=== PATIENT | female | born 1980 | race Caucasian/White ===

== ENCOUNTER 2016-06-20 16:39 | Emergency (ER) | payer BC ==
[2016-06-20] MEDS ORDERED: KETOROLAC 60 MG/2 ML VIAL IM STA (17:02)
--- NOTE | 2016-06-20 17:04 | ED ---
General Adult HPI - General Chief complaint: Abdominal Pain Stated complaint: muscle pain Time Seen by Provider: 06/20/16 16:50 Source: patient, RN notes reviewed Mode of arrival: ambulatory Limitations: no limitations - History of Present Illness Initial comments: This is a 35-year-old female who presents to the emergency department complaining of right lower quadrant abdominal pain. Patient states yesterday for the first time she tried and abdominal she and that makes her do a lot of twisting and then she woke up in the middle the night with pain in her right lower quadrant. Patient states the pain only comes when she moves or twists. Patient states the car ride here did not cause any pain. Patient states that she jumped straight up-and-down that does not cause her any pain. Patient denies any nausea or vomiting. Patient denies any diarrhea. Patient states lying still in bed she doesn't even feel it. Patient denies any recent fever or chills. Patient denies any other symptoms at this time. - Related Data Home Medications Medication Instructions Recorded Confirmed Ibuprofen [Advil] 200 mg PO Q8HR PRN 06/20/16 06/20/16 Previous Rx's Medication Instructions Recorded Levofloxacin [Levaquin] 750 mg PO DAILY #10 tab 06/20/16 metroNIDAZOLE [Flagyl] 500 mg PO QID #10 tab 06/20/16 Allergies Allergy/AdvReac Type Severity Reaction Status Date / Time sulfamethoxazole Allergy Rash/Hives Verified 06/20/16 17:12 [From Bactrim] trimethoprim [From Bactrim] Allergy Rash/Hives Verified 06/20/16 17:12 Review of Systems ROS Statement: Those systems with pertinent positive or pertinent negative responses have been documented in the HPI. ROS Other: All systems not noted in ROS Statement are negative. Past Medical History Past Medical History: No Reported History History of Any Multi-Drug Resistant Organisms: None Reported Past Surgical History: Section Past Psychological History: No Psychological Hx Reported Smoking Status: Current every day smoker Past Alcohol Use History: None Reported Past Drug Use History: None Reported General Exam - General Exam Comments Initial Comments: GENERAL: Patient is well-developed and well-nourished. Patient is nontoxic and well- hydrated and is in mild distress. ENT: Neck is soft and supple. No significant lymphadenopathy is noted. Oropharynx is clear. Moist mucous membranes. Neck has full range of motion without eliciting any pain. EYES: The sclera were anicteric and conjunctiva were pink and moist. Extraocular movements were intact and pupils were equal round and reactive to light. Eyelids were unremarkable. PULMONARY: Unlabored respirations. Good breath sounds bilaterally. No audible rales rhonchi or wheezing was noted. CARDIOVASCULAR: There is a regular rate and rhythm without any murmurs gallops or rubs. ABDOMEN: There is tenderness in the right lower quadrant there is no rebound. No palpable organomegaly was noted. There is no palpable pulsatile mass. Patient was able to lie still without any pain at all patient was able to stand up and jostled her body up-and-down is not causing any pain whatsoever she couldn't elicit pain with twisting or bending or sitting up in bed. SKIN: Skin is clear with no lesions or rashes and otherwise unremarkable. NEUROLOGIC: Patient is alert and oriented x3. Cranial nerves II through XII are grossly intact. Motor and sensory are also intact. Normal speech, volume and content. Symmetrical smile. MUSCULOSKELETAL: Normal extremities with adequate strength and full range of motion. No lower extremity swelling or edema. No calf tenderness. LYMPHATICS: No significant lymphadenopathy is noted PSYCHIATRIC: Normal psychiatric evaluation. Limitations: no limitations Course Vital Signs 06/20/16 06/20/16 06/20/16 16:49 17:37 18:55 Temperature 98 F 98.8 F 98.5 F Pulse Rate 108 H 108 H 100 Respiratory 20 18 18 Rate Blood Pressure 134/72 132/80 129/78 O2 Sat by Pulse 99 100 98 Oximetry 06/20/16 20:06 Temperature 98.7 F Pulse Rate 87 Respiratory 16 Rate Blood Pressure 109/55 O2 Sat by Pulse 97 Oximetry Medical Decision Making - Lab Data Result diagrams: 06/20/16 16:10 06/20/16 16:10 Lab Results 06/20/16 06/20/16 06/20/16 Range/Units 16:10 16:10 17:15 WBC 17.1 H (3.8-10.6) k/uL RBC 4.81 (3.80-5.40) m/uL Hgb 13.6 (11.4-16.0) gm/dL Hct 39.6 (34.0-46.0) % MCV 82.2 (80.0-100.0) fL MCH 28.2 (25.0-35.0) pg MCHC 34.3 (31.0-37.0) g/dL RDW 13.5 (11.5-15.5) % Plt Count 264 (150-450) k/uL Neutrophils % 76 % Lymphocytes % 16 % Monocytes % 4 % Eosinophils % 2 % Basophils % 1 % Neutrophils # 12.9 H (1.3-7.7) k/uL Lymphocytes # 2.8 (1.0-4.8) k/uL Monocytes # 0.7 (0-1.0) k/uL Eosinophils # 0.3 (0-0.7) k/uL Basophils # 0.1 (0-0.2) k/uL Sodium 140 (137-145) mmol/L Potassium 3.9 (3.5-5.1) mmol/L Chloride 101 (98-107) mmol/L Carbon Dioxide 28 (22-30) mmol/L Anion Gap 11 mmol/L BUN 7 (7-17) mg/dL Creatinine 0.70 (0.52-1.04) mg/dL Est GFR (MDRD) Af Amer >60 (>60 ml/min/1.73 sqM) Est GFR (MDRD) Non-Af >60 (>60 ml/min/1.73 sqM) Glucose 107 H (74-99) mg/dL Calcium 9.5 (8.4-10.2) mg/dL Total Bilirubin 0.5 (0.2-1.3) mg/dL AST 20 (14-36) U/L ALT 28 (9-52) U/L Alkaline Phosphatase 72 (38-126) U/L Total Protein 7.3 (6.3-8.2) g/dL Albumin 4.4 (3.5-5.0) g/dL Urine HCG, Qual Not Detected (Not Detectd) Disposition Clinical Impression: Diverticulitis Disposition: HOME SELF-CARE Condition: Good Prescriptions: Levofloxacin [Levaquin] 750 mg PO DAILY #10 tab metroNIDAZOLE [Flagyl] 500 mg PO QID #10 tab Referrals: Franco Sanchez DO [Primary Care Provider] - 1-2 days Time of Disposition: 20:29
[2016-06-20 17:24] LABS: Basophils # (A) 0.1 k/uL (0-0.2); Basophils % (A) 1 %; CH 27.6; CHCM 33.8; Eosinophils # (A) 0.3 k/uL (0-0.7); Eosinophils % (A) 2 %; HCT 39.6 % (34.0-46.0); HDW 2.53; HGB 13.6 gm/dL (11.4-16.0); Luc # (Auto) 0.32; Luc % (Auto) 2; Lymphocytes # (A) 2.8 k/uL (1.0-4.8); Lymphocytes % (A) 16 %; MCH 28.2 pg (25.0-35.0); MCHC 34.3 g/dL (31.0-37.0); MCV 82.2 fL (80.0-100.0); Mean Platelet Volume 7.4; Monocytes # (A) 0.7 k/uL (0-1.0); Monocytes % (A) 4 %; Neutrophils # (A) 12.9 k/uL (1.3-7.7); Neutrophils % (A) 76 %; RBC 4.81 m/uL (3.80-5.40); RDW 13.5 % (11.5-15.5); WBC 17.1 k/uL (3.8-10.6); WBC (Perox) 16.74
[2016-06-20 17:37] LABS: ALT 28 U/L (9-52); AST 20 U/L (14-36); Alkaline Phosphatase 72 U/L (38-126); Anion Gap 11 mmol/L; Blood Urea Nitrogen 7 mg/dL (7-17); Calcium 9.5 mg/dL (8.4-10.2); Carbon Dioxide 28 mmol/L (22-30); Chloride 101 mmol/L (98-107); Glucose 107 mg/dL (74-99); Non-African American GFR(MDRD) >60 (>60 ml/min/1.73 sqM); Potassium 3.9 mmol/L (3.5-5.1); Sodium 140 mmol/L (137-145); Total Bilirubin 0.5 mg/dL (0.2-1.3); Total Protein 7.3 g/dL (6.3-8.2)
--- NOTE | 2016-06-20 18:57 | US ---
EXAMINATION TYPE: US abdomen APPY DATE OF EXAM: 06/20/2016 6:51 PM COMPARISON: NONE CLINICAL HISTORY: RLQ Pain. Elevated WBC APPENDIX AP Diameter (normal < 6mm): Not visualized on this exam Measured outer wall to outer wall. Is the appendix seen in its entirety from the proximal cecum to distal end: No, the appendix is not visualized on this exam due to a large amount of peristalsing bowel in the RLQ Is there inflammatory changes or free fluid present: No TECHNOLOGIST IMPRESSION: Non-visualization of the appendix due to large amount of peristalsing bowel IMPRESSION: Appendix was not visualized. No solid or cystic mass identified. No free fluid.
[2016-06-20] MEDS ORDERED: RX INFO: IV CONTRAST WAS GIVEN 1 EACH MISC MISCELLANE PRN (19:05)
[2016-06-20 20:08] VITALS: RESP 16
--- NOTE | 2016-06-20 20:12 | CT ---
EXAMINATION TYPE: CT abdomen pelvis w con DATE OF EXAM: 06/20/2016 7:53 PM COMPARISON: NONE HISTORY: Right Lower Quadrant pain CT DLP: 617.2 mGycm Automated exposure control for dose reduction was used. TECHNIQUE: Helical acquisition of images was performed from the lung bases through the pelvis. CONTRAST: Performed without Oral Contrast and with IV Contrast, patient injected with 100 mL of Omnipaque 300. FINDINGS: Lung bases are clear. There is no pleural effusion. Heart size is normal. The liver spleen pancreas gallbladder appear normal. Bile ducts are not dilated. There is no adrenal mass. Kidneys have normal size and contour. There is no hydronephrosis. There is no retroperitoneal a denopathy. There is no ascites. There are moderate inflammatory changes posterior to the cecum and mid descending colon. There is fat stranding. There is a tiny amount of fluid in the right paracolic gutter. There is some free fluid in the cul-de-sac. Bladder distends smoothly. There is no pelvic mass. Appen serina appears normal. I see no bony destructive process. There appears to be a 1.5 cm diverticulum on t he posterior aspect of the mid ascending colon. IMPRESSION: THERE ARE INFLAMMATORY CHANGES ON THE POSTERIOR ASPECT OF THE ASCENDING COLON WITH FREE FLUID IN THE PARACOLIC GUTTER WELL IN THE PELVIS. THE FINDINGS ARE SUGGESTIVE OF DIVERTICULITIS WITH PERIDI VERTICULAR PHLEGMON.
[2016-06-20] MEDS ORDERED: metroNIDAZOLE 500 MG TAB PO STA (20:29)
[2016-06-20] MEDS ORDERED: LEVOFLOXACIN 750 MG TAB PO STA (20:29)
[2016-06-20 20:43] VITALS: BP 135/75; PULSE 89; TEMP 98.6
== END 2016-06-20 20:55 | disposition home or self-care (01) ==
LOC: EC 16:39
DX: K57.92 Diverticulitis of intestine, part unspecified, without perforation or abscess without bleeding (principal); F17.200 Nicotine dependence, unspecified, uncomplicated; Z88.1 Allergy status to other antibiotic agents; Z88.2 Allergy status to sulfonamides
CPT/HCPCS: 36415; 80053; 85025; 81025; 76705; 74177; 99284; 96372; J1885; Q9967

== ENCOUNTER 2016-06-25 18:34 | Emergency (ER) | payer BC ==
[2016-06-25 18:38] VITALS: RESP 18
[2016-06-25] MEDS ORDERED: HYDROmorphone 1 MG/ML 1 ML SYRINGE IVP STA (18:49)
[2016-06-25] MEDS ORDERED: SODIUM CHLORIDE 0.9% 1,000 ML IV STA (18:49)
[2016-06-25] MEDS ORDERED: ONDANSETRON 4 MG/2 ML VIAL IVP STA (18:49)
--- NOTE | 2016-06-25 18:50 | ED ---
Abdominal Pain HPI - General Chief Complaint: Abdominal Pain Stated Complaint: RT side pain Time Seen by Provider: 06/25/16 18:40 Source: patient Mode of arrival: ambulatory - History of Present Illness Initial Comments: Patient is a 35-year-old female with a recent visit with a chief complaint of right lower quadrant abdominal pain. Patient reports that she was seen in the emergency department on 06/20/16 and was diagnosed with diverticulitis. Patient reports that she was placed on Levaquin and Flagyl and has been taking the medications as prescribed. Patient reports that she's also been taking Motrin Tylenol for pain however she stop taking it today she wanted to make sure that she was starting to feel better. Patient reports that when she does not take her pain medication today she noticed that the right lower quadrant pain started to recur. Patient is concerned that the infection is still there. She states that she does have 3 days left of her antibiotics. Patient states that she's been no nausea or vomiting sent normal bowel movements. She denies any blood in her bowel movements. She states that she has had multiple rounds of antibiotics is concerned that she may have a yeast infection. She denies any other vaginal discharge. Patient reports that she rates her pain a 7 out of 10. She states that it is a cramping like sensation but will occasionally have sharp shooting pains. She reports that she attempted to follow-up with her primary care provider. She states that she was unable to get an appointment until 70s after an emergency room visit. - Related Data Previous Rx's Medication Instructions Recorded Levofloxacin [Levaquin] 750 mg PO DAILY #10 tab 06/20/16 Acetaminophen-Codeine 300-30mg 1 tab PO Q4H PRN #12 tablet 06/25/16 [Tylenol #3] Allergies Allergy/AdvReac Type Severity Reaction Status Date / Time sulfamethoxazole Allergy Rash/Hives Verified 06/25/16 18:56 [From Bactrim] trimethoprim [From Bactrim] Allergy Rash/Hives Verified 06/25/16 18:56 Review of Systems ROS Statement: Those systems with pertinent positive or pertinent negative responses have been documented in the HPI. ROS Other: All systems not noted in ROS Statement are negative. Past Medical History Past Medical History: No Reported History History of Any Multi-Drug Resistant Organisms: None Reported Past Surgical History: Section Past Psychological History: No Psychological Hx Reported Smoking Status: Current every day smoker Past Alcohol Use History: None Reported Past Drug Use History: None Reported General Exam - General Exam Comments Initial Comments: Patient is a pleasant 35-year-old female. She does not appear to be in any acute distress. General appearance: alert, in no apparent distress Head exam: Present: atraumatic, normocephalic, normal inspection Eye exam: Present: normal appearance, PERRL, EOMI. Absent: scleral icterus, conjunctival injection, periorbital swelling ENT exam: Present: normal exam, mucous membranes moist Neck exam: Present: normal inspection. Absent: tenderness, meningismus, lymphadenopathy Respiratory exam: Present: normal lung sounds bilaterally. Absent: respiratory distress, wheezes, rales, rhonchi, stridor Cardiovascular Exam: Present: regular rate, normal rhythm, normal heart sounds. Absent: systolic murmur, diastolic murmur, rubs, gallop, clicks GI/Abdominal exam: Present: soft, tenderness (Patient reports mild tenderness in the right lower quadrant. Deep palpation was performed and there is no evidence of guarding or wincing of the patient.), normal bowel sounds. Absent: distended, guarding, rebound, rigid Extremities exam: Present: normal inspection, full ROM, normal capillary refill. Absent: tenderness, pedal edema, joint swelling, calf tenderness Back exam: Present: normal inspection Neurological exam: Present: alert, oriented X3, CN II-XII intact Psychiatric exam: Present: normal affect, normal mood Skin exam: Present: warm, dry, intact, normal color. Absent: rash Course Vital Signs 06/25/16 06/25/16 18:35 20:46 Temperature 98.3 F 98.4 F Pulse Rate 98 85 Respiratory 18 18 Rate Blood Pressure 137/87 135/69 O2 Sat by Pulse 98 97 Oximetry Medical Decision Making - Medical Decision Making Patient is a 35-year-old female with a recent visit with a chief complaint of right lower quadrant abdominal pain. Patient reports that she was seen in the emergency department on 06/20/16 and was diagnosed with diverticulitis. Patient reports that she was placed on Levaquin and Flagyl and has been taking the medications as prescribed. Patient reports that she's also been taking Motrin Tylenol for pain however she stop taking it today she wanted to make sure that she was starting to feel better. Patient reports that when she does not take her pain medication today she noticed that the right lower quadrant pain started to recur. Patient is concerned that the infection is still there. She states that she does have 3 days left of her antibiotics. Patient states that she's been no nausea or vomiting sent normal bowel movements. Lab work is reviewed, WBC is 11.6, dramatic improvement from 17.1 on inital visit. Xray shows no free air. I discussed that doing a CT is not indicated at this time, given lack of guarding or tenderness to palpation. Discussed patient needs to finish abx, and will prescribe pain medication if needed. Patient agrees to treatment plan and has follow up appointment with PCP in 3 days. Patient understands treatment plan and will comply. - Lab Data Result diagrams: 06/25/16 19:31 06/25/16 19:31 Lab Results 06/25/16 06/25/16 06/25/16 Range/Units 19:31 19:31 19:31 WBC 11.6 H (3.8-10.6) k/uL RBC 4.68 (3.80-5.40) m/uL Hgb 12.8 (11.4-16.0) gm/dL Hct 39.0 (34.0-46.0) % MCV 83.3 (80.0-100.0) fL MCH 27.3 (25.0-35.0) pg MCHC 32.7 (31.0-37.0) g/dL RDW 13.4 (11.5-15.5) % Plt Count 255 (150-450) k/uL Neutrophils % 67 % Lymphocytes % 25 % Monocytes % 4 % Eosinophils % 1 % Basophils % 1 % Neutrophils # 7.7 (1.3-7.7) k/uL Lymphocytes # 2.8 (1.0-4.8) k/uL Monocytes # 0.5 (0-1.0) k/uL Eosinophils # 0.1 (0-0.7) k/uL Basophils # 0.1 (0-0.2) k/uL Sodium 140 (137-145) mmol/L Potassium 3.6 (3.5-5.1) mmol/L Chloride 101 (98-107) mmol/L Carbon Dioxide 27 (22-30) mmol/L Anion Gap 12 mmol/L BUN 6 L (7-17) mg/dL Creatinine 0.70 (0.52-1.04) mg/dL Est GFR (MDRD) Af Amer >60 (>60 ml/min/1.73 sqM) Est GFR (MDRD) Non-Af >60 (>60 ml/min/1.73 sqM) Glucose 88 (74-99) mg/dL Calcium 9.3 (8.4-10.2) mg/dL Total Bilirubin 0.3 (0.2-1.3) mg/dL AST 17 (14-36) U/L ALT 28 (9-52) U/L Alkaline Phosphatase 55 (38-126) U/L Total Protein 6.7 (6.3-8.2) g/dL Albumin 3.9 (3.5-5.0) g/dL Amylase 37 (30-110) U/L Lipase 42 (23-300) U/L Urine Color Colorless Urine Appearance Clear (Clear) Urine pH 7.0 (5.0-8.0) Ur Specific [place] 1.002 (1.001-1.035) Urine Protein Negative (Negative) Urine Glucose (UA) Negative (Negative) Urine Ketones Negative (Negative) Urine Blood Small H (Negative) Urine Nitrate Negative (Negative) Urine Bilirubin Negative (Negative) Urine Urobilinogen <2.0 (<2.0) mg/dL Ur Leukocyte Esterase Negative (Negative) Urine RBC 2 (0-5) /hpf Ur Squamous Epith Cells 1 (0-4) /hpf Disposition Clinical Impression: Diverticulitis, Abdominal pain Disposition: HOME SELF-CARE Condition: Good Instructions: Abdominal Pain (ED) Additional Instructions: Patient advised to finish the antibiotics. Return to the emergency department if any alarming signs or symptoms occur. Patient denies that she can also add additional pain medication as prescribed. Follow-up with primary care provider as discussed. Prescriptions: Acetaminophen-Codeine 300-30mg [Tylenol #3] 1 tab PO Q4H PRN #12 tablet PRN Reason: Pain Referrals: Franco Sanchez DO [Primary Care Provider] - 1-2 days Time of Disposition: 20:13
[2016-06-25 19:45] LABS: Basophils # (A) 0.1 k/uL (0-0.2); Basophils % (A) 1 %; CH 28.1; CHCM 33.9; Eosinophils # (A) 0.1 k/uL (0-0.7); Eosinophils % (A) 1 %; HDW 2.53; HGB 12.8 gm/dL (11.4-16.0); Luc # (Auto) 0.35; Luc % (Auto) 3; Lymphocytes # (A) 2.8 k/uL (1.0-4.8); Lymphocytes % (A) 25 %; MCH 27.3 pg (25.0-35.0); MCHC 32.7 g/dL (31.0-37.0); MCV 83.3 fL (80.0-100.0); Mean Platelet Volume 7.7; Monocytes # (A) 0.5 k/uL (0-1.0); Monocytes % (A) 4 %; Neutrophils # (A) 7.7 k/uL (1.3-7.7); Neutrophils % (A) 67 %; RBC 4.68 m/uL (3.80-5.40); RDW 13.4 % (11.5-15.5); WBC 11.6 k/uL (3.8-10.6); WBC (Perox) 11.62
[2016-06-25 19:48] LABS: Appearance,Urine Clear (Clear); Bilirubin,Urine Negative (Negative); Glucose,Urine (UA) Negative (Negative); Ketones,Urine Negative (Negative); Leukocyte Esterase,Urine Negative (Negative); Nitrite,Urine Negative (Negative); Particle Count 474; Protein,Urine Negative (Negative); RBC,Urine 2 /hpf (0-5); Squamous Epithelial Cell,Urine 1 /hpf (0-4); UA Billing (MACRO vs. MICRO) MICRO; Urobilinogen,Urine <2.0 mg/dL (<2.0)
--- NOTE | 2016-06-25 19:53 | XR ---
EXAMINATION TYPE: XR KUB DATE OF EXAM: 06/25/2016 7:45 PM CLINICAL HISTORY: History of newly diagnosed right-sided acute diverticulitis presents with right low er quadrant pain TECHNIQUE: 2 upright KUB images of the abdomen are obtained COMPARISON: CT abdomen and pelvis June 20, 2016. FINDINGS: Scattered gas is seen in non-distended stomach and small bowel loops. Gas and fecal mater ial is seen in non-distended colon. There is no visceromegaly, pneumoperitoneum, or abnormal calcif ication appreciated. The lung bases are clear and the osseous structures are intact. IMPRESSION: Overall nonobstructive bowel gas pattern.
[2016-06-25 19:57] LABS: ALT 28 U/L (9-52); AST 17 U/L (14-36); Alkaline Phosphatase 55 U/L (38-126); Amylase 37 U/L (30-110); Anion Gap 12 mmol/L; Blood Urea Nitrogen 6 mg/dL (7-17); Calcium 9.3 mg/dL (8.4-10.2); Carbon Dioxide 27 mmol/L (22-30); Chloride 101 mmol/L (98-107); Glucose 88 mg/dL (74-99); Non-African American GFR(MDRD) >60 (>60 ml/min/1.73 sqM); Potassium 3.6 mmol/L (3.5-5.1); Sodium 140 mmol/L (137-145); Total Bilirubin 0.3 mg/dL (0.2-1.3); Total Protein 6.7 g/dL (6.3-8.2)
[2016-06-25 20:07] LABS: Specific Gravity,Urine 1.002 (1.001-1.035)
[2016-06-25 20:47] VITALS: BP 135/69; PULSE 85; TEMP 98.4
== END 2016-06-25 20:47 | disposition home or self-care (01) ==
LOC: EC 18:34
DX: K57.92 Diverticulitis of intestine, part unspecified, without perforation or abscess without bleeding (principal); F17.200 Nicotine dependence, unspecified, uncomplicated; Z88.2 Allergy status to sulfonamides; Z88.1 Allergy status to other antibiotic agents
CPT/HCPCS: 36415; 80053; 82150; 83690; 85025; 81001; 74000; 99284; 96374; 96375; 96361; J2405; J1170

== ENCOUNTER 2016-08-16 10:43 | Day surgery (SDC) | payer BC ==
[2016-08-14 16:06] VITALS: BMI 26.6
[~2016-08-16 10:43] MED LIST: LACTATED RINGERS 1,000 ML IV SCH; LIDOCAINE 1% 20 ML VIAL (10MG/ML) FOR IV START INTRADERMA PRN
[2016-08-16 11:55] VITALS: TEMP 98.4
[2016-08-16] MEDS ORDERED: PROPOFOL 10 MG/ML 20 ML VIAL IV ONE (12:21)
--- NOTE | 2016-08-16 12:36 | P.PCN ---
Date of Procedure: 08/16/16 Procedure(s) Performed: BRIEF HISTORY: Patient is a 35-year-old pleasant white female, scheduled for an elective colonoscopy as a part of evaluation of recent episode of acute right- sided diverticulitis about a month ago. She went to the emergency room and had a CT of the abdomen and pelvis done and was treated with antibiotics and she is doing well since. PROCEDURE PERFORMED: Colonoscopy with biopsy. PREOPERATIVE DIAGNOSIS: Recent episode of acute right-sided diverticulitis. IV sedation per Anesthesia. PROCEDURE: After informed consent was obtained, the patient, was brought into the endoscopy unit. IV sedation was administered by Anesthesia under continuous monitoring. Digital rectal examination was normal. Initially the Olympus CF- 160 flexible video colonoscope was then inserted in the rectum, gradually advanced into the cecum without any difficulty. Careful examination was performed as the scope was gradually being withdrawn. Ileocecal valve and the appendiceal orifice were visualized and appeared normal. Prep was excellent. Mucosa of the cecum, appeared normal. There were 2 small diverticulosis noted in the ascending colon. In the hepatic flexure there was a 5 mm polyp that was removed by biopsy. ascending colon, transverse colon, descending colon, sigmoid colon, and rectum appeared normal. Retroflexion was performed in the rectum and no lesions were seen. The patient tolerated the procedure well. IMPRESSION: 5 millimeter hepatic flexure polyp status post removal by biopsy. Right-sided diverticulosis. RECOMMENDATIONS: Findings of this examination were discussed with the patient as well as a family. She was advised to follow with the biopsy results. If the biopsy shows a tubal adenoma she can have a repeat colonoscopy in 5 years. In the meantime she was advised to be a high-fiber diet and take fiber supplements on a regular basis.
[2016-08-16 12:41] VITALS: PULSE 64; RESP 16
[2016-08-16 13:06] VITALS: BP 109/65
== END 2016-08-16 13:54 | disposition home or self-care (01) ==
LOC: ORWHC2ENDO 10:43
PROVIDERS: ATTEND Internal Medicine Gastroenterology
DX: D12.3 Benign neoplasm of transverse colon (principal); K57.30 Diverticulosis of large intestine without perforation or abscess without bleeding; E78.5 Hyperlipidemia, unspecified; Z72.0 Tobacco use; Z88.2 Allergy status to sulfonamides
CPT/HCPCS: 81025; 88305; 84703; 45380; J2704

== ENCOUNTER 2018-07-12 10:39 | Emergency (ER) | payer BC ==
[2018-07-12 10:42] VITALS: RESP 18
[2018-07-12] MEDS ORDERED: KETOROLAC 30 MG/ML 1 ML VIAL IVP STA (11:26)
[2018-07-12] MEDS ORDERED: SODIUM CHLORIDE 0.9% 1,000 ML IV STA ×2 (11:26)
[2018-07-12 12:01] LABS: Appearance,Urine Clear (Clear); Bilirubin,Urine Negative (Negative); Blood,Urine Small (Negative); Color,Urine Light Yellow; Glucose,Urine (UA) Negative (Negative); Ketones,Urine Negative (Negative); Leukocyte Esterase,Urine Negative (Negative); Mucus,Urine Rare /hpf; Nitrite,Urine Negative (Negative); PH, Urine 6.5 (5.0-8.0); Protein,Urine Negative (Negative); RBC,Urine 3 /hpf (0-5); Specific Gravity,Urine 1.003 (1.001-1.035); Squamous Epithelial Cell,Urine 1 /hpf (0-4); Urobilinogen,Urine <2.0 mg/dL (<2.0)
[2018-07-12 12:02] LABS: Basophils % (A) 0 %; Eosinophils # (A) 0.1 k/uL (0-0.7); Eosinophils % (A) 1 %; HGB 13.4 gm/dL (11.4-16.0); Lymphocytes # (A) 2.7 k/uL (1.0-4.8); Lymphocytes % (A) 26 %; MCH 27.1 pg (25.0-35.0); MCHC 33.5 g/dL (31.0-37.0); Mean Platelet Volume 7.1; Monocytes # (A) 0.4 k/uL (0-1.0); Monocytes % (A) 4 %; Neutrophils # (A) 6.8 k/uL (1.3-7.7); Neutrophils % (A) 67 %; Platelet Count 259 k/uL (150-450); RBC 4.94 m/uL (3.80-5.40); RDW 13.5 % (11.5-15.5); WBC 10.2 k/uL (3.8-10.6)
[2018-07-12 12:09] LABS: ALT 25 U/L (9-52); AST 20 U/L (14-36); Albumin 4.1 g/dL (3.5-5.0); Alkaline Phosphatase 51 U/L (38-126); Amylase 33 U/L (30-110); Anion Gap 8 mmol/L; Blood Urea Nitrogen 10 mg/dL (7-17); Calcium 9.6 mg/dL (8.4-10.2); Carbon Dioxide 28 mmol/L (22-30); Chloride 105 mmol/L (98-107); Glucose 94 mg/dL (74-99); Lipase 38 U/L (23-300); Potassium 4.1 mmol/L (3.5-5.1); Sodium 141 mmol/L (137-145); Total Bilirubin 0.6 mg/dL (0.2-1.3)
--- NOTE | 2018-07-12 12:39 | CT ---
EXAMINATION TYPE: CT abdomen pelvis w con DATE OF EXAM: 07/12/2018 HISTORY: Difficult urination, RLQ pain, history of diverticulitis CT DLP: 831.3mGycm Automated Exposure Control for Dose Reduction was Utilized. CONTRAST: CT scan of the abdomen and pelvis is performed without oral and with IV Contrast, patient injected wi th 100 mL of Isovue 300. COMPARISON: CT abdomen pelvis June 20, 2016 FINDINGS: LUNG BASES: No significant abnormality is appreciated. LIVER/GB: No significant abnormality is appreciated. PANCREAS: No significant abnormality is seen. SPLEEN: No significant abnormality is seen. ADRENALS: No significant abnormality is seen. KIDNEYS: Symmetric cortical medullary uptake and excretion from both kidneys is seen without concerni ng solid or cystic renal mass or hydronephrosis seen bilaterally. Bladder is unremarkable in the midl ine of the anterior pelvis. BOWEL: Evaluation bowel is suboptimal secondary to lack of enteric contrast. No suspicious small or l arge bowel dilatation is seen. There is mild wall thickening at level of terminal ileum coronal image 33. Appendix is felt within normal limits from posterior margin of cecum seen best near coronal imag e 40. There are scattered colonic diverticula including right-sided diverticula without CT evidence f or acute diverticulitis. UTERUS/ADNEXA: Anteverted uterus is seen. There is moderate amount of free fluid in pelvic cul-de-sac which is slightly higher density than anterior bladder suggesting some blood product. Right ovary is slightly larger than left ovary with heterogeneous vascularity. LYMPH NODES: No greater than 1cm abdominal or pelvic lymph nodes are appreciated. OSSEOUS STRUCTURES: Slight levoconvex scoliosis is redemonstrated. OTHER: No significant additional abnormality is seen. IMPRESSION: Moderate amount of nonsimple fluid probable blood product in the pelvis. Consider rupture of hemorrhagic right ovarian cyst as possible etiology given patient's symptoms and vascular promine nce of the right ovary. Scattered diverticula without CT evidence for acute diverticulitis. No suspic ious renal calculus or hydronephrosis.
--- NOTE | 2018-07-12 13:53 | US ---
EXAMINATION TYPE: US transvaginal DATE OF EXAM: 07/12/2018 COMPARISON: CT 07/12/2018 CLINICAL HISTORY: Pain. Pelvic pain. History of 2 c-sections TECHNIQUE: . Transavaginal sonographic images of the pelvis were acquired. Date of LMP: 06/20/2015 EXAM MEASUREMENTS: Uterus: 8.4 x 5.3 x 5.3 cm Endometrial Stripe: 1.0 cm Right Ovary: 3.3 x 2.3 x 2.9 cm Left Ovary: 2.7 x 1.5 x 1.2 cm 1. Uterus: Anteverted wnl 2. Endometrium: wnl 3. Right Ovary: Complex area visualized 1.5 x 1.5 x 1.5 cm, possible hemorrhagic ovarian cyst visual ized on CT today 4. Left Ovary: wnl Spectral, color and waveform doppler imaging shows good arterial and venous flow within the ovaries ; there is no evidence for ovarian torsion. 5. Bilateral Adnexa: wnl 6. Posterior cul-de-sac: Moderate amount of free fluid visualized IMPRESSION: Crenulated right 1.5 cm complex ovarian lesion with peripheral blood flow likely represen ts a hemorrhagic cyst. In combination with a pelvic free fluid findings suggest recent cyst rupture.
--- NOTE | 2018-07-12 14:07 | ED ---
Abdominal Pain HPI - General Chief Complaint: Abdominal Pain Stated Complaint: Urogenital Time Seen by Provider: 07/12/18 10:45 Source: patient, RN notes reviewed, old records reviewed Mode of arrival: ambulatory Limitations: no limitations - History of Present Illness Initial Comments: This is a 37-year-old female the ER today. Patient presents today for evaluation regards to abdominal pain, suprapubic abdominal pain. Patient states she has history of ovarian cysts. History of diverticulitis, concern for both. No fevers. No nausea vomiting or diarrhea. No bowel or bladder issues. Some discomfort with pain but no burning. No blood in the urine no blood in the stool MD Complaint: abdominal pain (Suprapubic), other (Right flank) Location: diffuse, RLQ, suprapubic Radiation: RLQ Migration to: suprapubic Severity: moderate Severity scale (1-10): 6 Quality: sharp Consistency: intermittent Improves With: nothing Worsens With: nothing Associated Symptoms: nausea - Related Data Home Medications Medication Instructions Recorded Confirmed Atorvastatin [Lipitor] 10 mg PO HS 07/12/18 07/12/18 Allergies Allergy/AdvReac Type Severity Reaction Status Date / Time sulfamethoxazole AdvReac "inflammed Verified 07/12/18 11:01 [From Bactrim] bowels" trimethoprim [From Bactrim] AdvReac "inflammed Verified 07/12/18 11:01 bowels" Review of Systems ROS Statement: Those systems with pertinent positive or pertinent negative responses have been documented in the HPI. ROS Other: All systems not noted in ROS Statement are negative. Past Medical History Past Medical History: Hyperlipidemia Additional Past Medical History / Comment(s): hx migraines, current cold s/s, recent "bowel infection", hx hypoglycemia History of Any Multi-Drug Resistant Organisms: None Reported Past Surgical History: Section Past Anesthesia/Blood Transfusion Reactions: No Reported Reaction Past Psychological History: No Psychological Hx Reported Smoking Status: Current every day smoker Past Alcohol Use History: None Reported Past Drug Use History: None Reported - Past Family History Mother Family Medical History: No Reported History General Exam Limitations: no limitations General appearance: alert, in no apparent distress Head exam: Present: atraumatic, normocephalic, normal inspection Eye exam: Present: normal appearance, PERRL, EOMI. Absent: scleral icterus, conjunctival injection, periorbital swelling ENT exam: Present: normal exam, mucous membranes moist Neck exam: Present: normal inspection. Absent: tenderness, meningismus, lymphadenopathy Respiratory exam: Present: normal lung sounds bilaterally. Absent: respiratory distress, wheezes, rales, rhonchi, stridor Cardiovascular Exam: Present: regular rate, normal rhythm, normal heart sounds. Absent: systolic murmur, diastolic murmur, rubs, gallop, clicks GI/Abdominal exam: Present: soft, tenderness (Suprapubic), normal bowel sounds. Absent: distended, guarding, rebound, rigid Extremities exam: Present: normal inspection, full ROM, normal capillary refill. Absent: tenderness, pedal edema, joint swelling, calf tenderness Back exam: Present: normal inspection Neurological exam: Present: alert, oriented X3, CN II-XII intact Psychiatric exam: Present: normal affect, normal mood Skin exam: Present: warm, dry, intact, normal color. Absent: rash Course Vital Signs 07/12/18 10:40 Temperature 98.1 F Pulse Rate 102 H Respiratory 18 Rate Blood Pressure 123/77 O2 Sat by Pulse 99 Oximetry - Reevaluation(s) Reevaluation #1: 07/12/18 14:33 Medical record reviewed Reevaluation #2: 07/12/18 14:33 Patient in no acute distress Medical Decision Making - Medical Decision Making 37 female the ER for evaluation presents today for evaluation regarding bowel pain. Positive findings of ruptured ovarian cyst likely hemorrhagic. They she'll be discharged home - Lab Data Result diagrams: 07/12/18 11:47 07/12/18 11:47 Lab Results 07/12/18 07/12/18 07/12/18 Range/Units 11:47 11:47 11:47 WBC 10.2 (3.8-10.6) k/uL RBC 4.94 (3.80-5.40) m/uL Hgb 13.4 (11.4-16.0) gm/dL Hct 40.0 (34.0-46.0) % MCV 81.0 (80.0-100.0) fL MCH 27.1 (25.0-35.0) pg MCHC 33.5 (31.0-37.0) g/dL RDW 13.5 (11.5-15.5) % Plt Count 259 (150-450) k/uL Neutrophils % 67 % Lymphocytes % 26 % Monocytes % 4 % Eosinophils % 1 % Basophils % 0 % Neutrophils # 6.8 (1.3-7.7) k/uL Lymphocytes # 2.7 (1.0-4.8) k/uL Monocytes # 0.4 (0-1.0) k/uL Eosinophils # 0.1 (0-0.7) k/uL Basophils # 0.0 (0-0.2) k/uL Sodium 141 (137-145) mmol/L Potassium 4.1 (3.5-5.1) mmol/L Chloride 105 (98-107) mmol/L Carbon Dioxide 28 (22-30) mmol/L Anion Gap 8 mmol/L BUN 10 (7-17) mg/dL Creatinine 0.73 (0.52-1.04) mg/dL Est GFR (CKD-EPI)AfAm >90 (>60 ml/min/1.73 sqM) Est GFR (CKD-EPI)NonAf >90 (>60 ml/min/1.73 sqM) Glucose 94 (74-99) mg/dL Plasma Lactic Acid Alexis (0.7-2.0) mmol/L Calcium 9.6 (8.4-10.2) mg/dL Total Bilirubin 0.6 (0.2-1.3) mg/dL AST 20 (14-36) U/L ALT 25 (9-52) U/L Alkaline Phosphatase 51 (38-126) U/L Total Protein 7.0 (6.3-8.2) g/dL Albumin 4.1 (3.5-5.0) g/dL Amylase 33 (30-110) U/L Lipase 38 (23-300) U/L Urine Color Light Yellow Urine Appearance Clear (Clear) Urine pH 6.5 (5.0-8.0) Ur Specific [place] 1.003 (1.001-1.035) Urine Protein Negative (Negative) Urine Glucose (UA) Negative (Negative) Urine Ketones Negative (Negative) Urine Blood Small H (Negative) Urine Nitrite Negative (Negative) Urine Bilirubin Negative (Negative) Urine Urobilinogen <2.0 (<2.0) mg/dL Ur Leukocyte Esterase Negative (Negative) Urine RBC 3 (0-5) /hpf Ur Squamous Epith Cells 1 (0-4) /hpf Urine Mucus Rare H (None) /hpf 07/12/18 Range/Units 11:47 WBC (3.8-10.6) k/uL RBC (3.80-5.40) m/uL Hgb (11.4-16.0) gm/dL Hct (34.0-46.0) % MCV (80.0-100.0) fL MCH (25.0-35.0) pg MCHC (31.0-37.0) g/dL RDW (11.5-15.5) % Plt Count (150-450) k/uL Neutrophils % % Lymphocytes % % Monocytes % % Eosinophils % % Basophils % % Neutrophils # (1.3-7.7) k/uL Lymphocytes # (1.0-4.8) k/uL Monocytes # (0-1.0) k/uL Eosinophils # (0-0.7) k/uL Basophils # (0-0.2) k/uL Sodium (137-145) mmol/L Potassium (3.5-5.1) mmol/L Chloride (98-107) mmol/L Carbon Dioxide (22-30) mmol/L Anion Gap mmol/L BUN (7-17) mg/dL Creatinine (0.52-1.04) mg/dL Est GFR (CKD-EPI)AfAm (>60 ml/min/1.73 sqM) Est GFR (CKD-EPI)NonAf (>60 ml/min/1.73 sqM) Glucose (74-99) mg/dL Plasma Lactic Acid Alexis 0.8 (0.7-2.0) mmol/L Calcium (8.4-10.2) mg/dL Total Bilirubin (0.2-1.3) mg/dL AST (14-36) U/L ALT (9-52) U/L Alkaline Phosphatase (38-126) U/L Total Protein (6.3-8.2) g/dL Albumin (3.5-5.0) g/dL Amylase (30-110) U/L Lipase (23-300) U/L Urine Color Urine Appearance (Clear) Urine pH (5.0-8.0) Ur Specific [place] (1.001-1.035) Urine Protein (Negative) Urine Glucose (UA) (Negative) Urine Ketones (Negative) Urine Blood (Negative) Urine Nitrite (Negative) Urine Bilirubin (Negative) Urine Urobilinogen (<2.0) mg/dL Ur Leukocyte Esterase (Negative) Urine RBC (0-5) /hpf Ur Squamous Epith Cells (0-4) /hpf Urine Mucus (None) /hpf - Radiology Data Radiology results: report reviewed (Ultrasound shows free fluid, CT shows ovarian cysts), image reviewed Disposition Clinical Impression: Ovarian cyst rupture Disposition: HOME SELF-CARE Condition: Good Instructions (If sedation given, give patient instructions): Ruptured Ovarian Cyst (ED) Is patient prescribed a controlled substance at d/c from ED?: No Referrals: Franco Sanchez DO [Primary Care Provider] - 1-2 days
[2018-07-12 14:37] VITALS: BP 100/62; PULSE 62; TEMP 98.2
== END 2018-07-12 14:30 | disposition home or self-care (01) ==
LOC: EC 10:39
DX: N83.201 Unspecified ovarian cyst, right side (principal); E78.5 Hyperlipidemia, unspecified; F17.200 Nicotine dependence, unspecified, uncomplicated; Z87.19 Personal history of other diseases of the digestive system; Z79.899 Other long term (current) drug therapy; Z88.2 Allergy status to sulfonamides
CPT/HCPCS: 99285; 96374; 36415; 80053; 82150; 83605; 83690; 85025; 81001; 87086; 93975; 76830; 74177; J1885; Q9967

== ENCOUNTER → 2018-07-22 | Outpatient (CLI) | payer BC ==
--- NOTE | 2018-07-22 09:55 | MM ---
Reason for exam: screening (asymptomatic). Baseline mammogram. History: Family history of breast cancer in aunt at age 70. Took hormonal contraceptives for 6 months beginning at age 17. Physical Findings: Nurse did not find any significant physical abnormalities on exam. MG Screening Mammo w CAD Bilateral CC and MLO view(s) were taken. There are scattered fibroglandular densities. Finding: There are varied sized equal density (isodense), round, oval masses in both breasts consistent with possible cysts. These results were verbally communicated with the patient and result sheet given to the patient on 07/22/18. ASSESSMENT: Incomplete: need additional imaging evaluation, BI-RAD 0 RECOMMENDATION: Ultrasound of both breasts. [facility] will attempt to contact patient to return for ultrasound.
--- NOTE | 2018-07-22 09:56 | USB ---
Reason for exam: additional evaluation requested from abnormal screening. History: Family history of breast cancer in aunt at age 70. Took hormonal contraceptives for 6 months beginning at age 17. Physical Findings: Breast exam preformed at baseline screening. US Breast Workup CARIN Right complete breast ultrasound includes all four quadrants, the retroareolar region and axilla. Finding demonstrates a 0.6 x 0.6 x 0.6cm cystic lesion at 5 o'clock and a 0.2 x 0.3 x 0.4cm cystic lesion at 7 o'clock. Left complete breast ultrasound includes all four quadrants, the retroareolar region and axilla. Finding demonstrates no cystic or solid lesion seen. These results were verbally communicated with the patient and result sheet given to the patient on 07/22/18. ASSESSMENT: Probably benign, BI-RAD 3 Benign, BI-RAD 2 finding in the right breast. Probably benign, BI-RAD 3 finding in the left breast. RECOMMENDATION: Follow-up diagnostic mammogram of the left breast in 6 months.
== END | disposition home or self-care (01) ==
LOC: RADMAMWWP 07:29
PROVIDERS: ATTEND Obstetrics & Gynecology
DX: Z12.31 Encounter for screening mammogram for malignant neoplasm of breast (principal); R92.8 Other abnormal and inconclusive findings on diagnostic imaging of breast
CPT/HCPCS: 77067

== ENCOUNTER → 2019-04-02 | Outpatient (CLI) | payer BC ==
--- NOTE | 2019-04-02 12:09 | MM ---
Reason for exam: follow-up at short interval from prior study. Last mammogram was performed 8 months ago. History: Family history of breast cancer in aunt at age 70. Took hormonal contraceptives for 6 months beginning at age 17. Physical Findings: A clinical breast exam by your physician is recommended on an annual basis and results should be correlated with mammographic findings. MG Diagnostic Mammo LT w CAD CC and MLO view(s) were taken of the left breast. Prior study comparison: July 22, 2018, bilateral MG screening mammo w CAD. The breast tissue is heterogeneously dense. This may lower the sensitivity of mammography. There is chronic nodularity in the left breast. There is no dominant lesion. These results were verbally communicated with the patient and result sheet given to the patient on 04/02/19. ASSESSMENT: Benign, BI-RAD 2 RECOMMENDATION: Return to routine screening mammogram schedule for both breasts. Back on schedule for July 2019.
== END | disposition home or self-care (01) ==
LOC: RADMAMWWP 09:32
PROVIDERS: ATTEND Family Medicine
DX: R92.8 Other abnormal and inconclusive findings on diagnostic imaging of breast (principal)
CPT/HCPCS: 77065

== ENCOUNTER 2020-12-17 16:18 | Emergency (ER) | payer BC ==
[2020-12-17 17:57] VITALS: RESP 16; TEMP 98.1
[2020-12-17 19:14] LABS: Appearance,Urine Clear (Clear); Bilirubin,Urine Negative (Negative); Blood,Urine Small (Negative); Color,Urine Colorless; Glucose,Urine (UA) Negative (Negative); Ketones,Urine Negative (Negative); Leukocyte Esterase,Urine Negative (Negative); Nitrite,Urine Negative (Negative); PH, Urine 6.5 (5.0-8.0); Protein,Urine Negative (Negative); RBC,Urine 2 /hpf (0-5); Specific Gravity,Urine 1.003 (1.001-1.035); Squamous Epithelial Cell,Urine 1 /hpf (0-4); Urobilinogen,Urine <2.0 mg/dL (<2.0); WBC,Urine <1 /hpf (0-5)
--- NOTE | 2020-12-17 20:19 | ED ---
General Adult HPI - General Chief complaint: Urogenital Stated complaint: abd pressure Time Seen by Provider: 12/17/20 19:05 Source: patient Mode of arrival: ambulatory Limitations: no limitations - History of Present Illness Initial comments: 39 year-old female patient presents to the emergency department for evaluation of lower pelvic pressure. She is also experiencing urinary frequency and leaking. Patient states symptoms started 4 days ago. States two days ago she was started on Cipro for UTI. She denies any fever or chills. States she did feel n auseated earlier today. She reports some low back pain with this. Patient is with two deliveries. She denies any constipation or diarrhea. Denies any other abdominal surgeries. States she does have history of ovarian cyst. Last period was 2 weeks ago. States bleeding was normal for her. Patient denies any recent rash, cough, shortness of breath, chest pain, numbness, tingling, dizziness, weakness, headache, visual changes, or any other complaints. - Related Data Home Medications Medication Instructions Recorded Confirmed Atorvastatin [Lipitor] 10 mg PO HS 07/12/18 07/12/18 Allergies Allergy/AdvReac Type Severity Reaction Status Date / Time sulfamethoxazole AdvReac "inflammed Verified 12/17/20 17:57 [From Bactrim] bowels" trimethoprim [From Bactrim] AdvReac "inflammed Verified 12/17/20 17:57 bowels" Review of Systems ROS Statement: Those systems with pertinent positive or pertinent negative responses have been documented in the HPI. ROS Other: All systems not noted in ROS Statement are negative. Past Medical History Past Medical History: Hyperlipidemia Additional Past Medical History / Comment(s): hx migraines, current cold s/s, recent "bowel infection", hx hypoglycemia History of Any Multi-Drug Resistant Organisms: None Reported Past Surgical History: Section Past Anesthesia/Blood Transfusion Reactions: No Reported Reaction Past Psychological History: No Psychological Hx Reported Smoking Status: Current every day smoker Past Alcohol Use History: None Reported - Past Family History Mother Family Medical History: No Reported History General Exam Limitations: no limitations General appearance: alert, in no apparent distress, other (This is a well-developed, well-nourished adult female patient in no acute distress. Vital signs upon presentation are temperature 98.1F, pulse 71, respirations 16, blood pressure 144/82, pulse ox 99% on room air.) ENT exam: Present: normal exam, normal oropharynx, mucous membranes moist Respiratory exam: Present: normal lung sounds bilaterally. Absent: respiratory distress, wheezes, rales, rhonchi, stridor Cardiovascular Exam: Present: regular rate, normal rhythm, normal heart sounds. Absent: systolic murmur, diastolic murmur, rubs, gallop, clicks GI/Abdominal exam: Present: soft, normal bowel sounds. Absent: distended, tenderness, guarding, rebound, rigid Back exam: Present: normal inspection. Absent: CVA tenderness (R), CVA tenderness (L) Neurological exam: Present: alert, oriented X3, CN II-XII intact Psychiatric exam: Present: normal affect, normal mood Skin exam: Present: warm, dry, intact, normal color. Absent: rash Course Vital Signs 12/17/20 17:55 Temperature 98.1 F Pulse Rate 71 Respiratory 16 Rate Blood Pressure 144/82 O2 Sat by Pulse 99 Oximetry Medical Decision Making - Medical Decision Making 39-year-old female patient presented to the emergency department today for evaluation of pelvic pressure. She also reporting urinary frequency and dribbling. She is currently taking Cipro for urinary tract infection. Urinalysis here was negative. Did perform ultrasound showed evidence for solid lesion to the right ovary measures around 3 cm. Remainder of ultrasound was unremarkable. Patient requested to leave and be called with the results. Her vital signs are stable. 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 Patient is agreeable this plan. My attending is Dr. Gay. - Lab Data Lab Results 12/17/20 12/17/20 Range/Units 19:02 20:17 Urine Color Colorless Urine Appearance Clear (Clear) Urine pH 6.5 (5.0-8.0) Ur Specific [place] 1.003 (1.001-1.035) Urine Protein Negative (Negative) Urine Glucose (UA) Negative (Negative) Urine Ketones Negative (Negative) Urine Blood Small H (Negative) Urine Nitrite Negative (Negative) Urine Bilirubin Negative (Negative) Urine Urobilinogen <2.0 (<2.0) mg/dL Ur Leukocyte Esterase Negative (Negative) Urine RBC 2 (0-5) /hpf Urine WBC <1 (0-5) /hpf Ur Squamous Epith Cells 1 (0-4) /hpf Urine HCG, Qual Not Detected (Not Detectd) - Radiology Data Radiology results: report reviewed, image reviewed Ultrasound of the bladder is obtained. Report was reviewed in its entirety. Impression by Dr. Rivera shows urinary bladder has normal size and contour. No evidence of a mass. Transvaginal ultrasound was obtained. Report was reviewed in its entirety. Impression by Dr. Rivera shows small amount of free fluid in the cul-de-sac. Endometrium is normal echogenicity. No evidence of ovarian torsion. No suspic ious adnexal mass. Reading through the report shows a solid lesion to the right ovary measures 2.8 x 2.3 x 3.2 cm with ill-defined borders questionable etiology. Disposition Clinical Impression: Pelvic pain, Lesion of right ovary Disposition: HOME SELF-CARE Condition: Good Instructions (If sedation given, give patient instructions): Pelvic Pain in Women (ED) Additional Instructions: Follow up with gynecology for further evaluation as soon as possible. Return for any new, worsening, or concerning symptoms. Is patient prescribed a controlled substance at d/c from ED?: No Referrals: Franco Sanchez DO [Primary Care Provider] - 1-2 days Time of Disposition: 21:02
--- NOTE | 2020-12-17 20:57 | US ---
EXAMINATION TYPE: US bladder DATE OF EXAM: 12/17/2020 COMPARISON: NONE CLINICAL HISTORY: Pelvic pressure/urinary frequency. Pelvic pressure, pt currently taking antibiotics for UTI Color Doppler performed to assess ureteral jets. Bilateral Jets seen: No Bladder appeared wnl, located within pelvis IMPRESSION: Urinary bladder has normal size and contour. No evidence of a mass.
--- NOTE | 2020-12-17 21:07 | US ---
EXAMINATION TYPE: US transvaginal DATE OF EXAM: 12/17/2020 COMPARISON: US CLINICAL HISTORY: Pelvic pressure/rt pelvic pain/hx ovarian cyst. Pelvic pressure TECHNIQUE: Transvaginal (TV). Transvaginal sonographic images of the pelvis were acquired. Date of LMP: 12/05/2020 EXAM MEASUREMENTS: Uterus: 8.8 x 4.3 x 5.7 cm Endometrial Stripe: 1.3 cm Right Ovary: 3.6 x 2.9 x 4.0 cm Left Ovary: 3.5 x 2.3 x 2.6 cm 1. Uterus: Anteverted Heterogeneous with small Nabothian cysts in cervix 2. Endometrium: wnl 3. Right Ovary: Solid lesion= 2.8 x 2.3 x 3.2 cm with ill-defined borders ?etiology 4. Left Ovary: wnl Spectral, color and waveform doppler imaging shows good arterial and venous flow within the ovaries ; there is no evidence for ovarian torsion. 5. Bilateral Adnexa: wnl 6. Posterior cul-de-sac: Small amount of free fluid IMPRESSION: There is small amount of free fluid in the cul-de-sac. Endometrium has normal echogenicity. No eviden ce of ovarian torsion. No suspicious adnexal mass.
[2020-12-18 00:01] VITALS: BP 136/71; PULSE 68
== END 2020-12-17 21:06 | disposition home or self-care (01) ==
LOC: EC 16:18
DX: N83.8 Other noninflammatory disorders of ovary, fallopian tube and broad ligament (principal); E78.5 Hyperlipidemia, unspecified; F17.200 Nicotine dependence, unspecified, uncomplicated
CPT/HCPCS: 76830; 76857; 81001; 81025; 93975; 99284

== ENCOUNTER 2023-05-22 10:11 | Emergency (ER) | payer BC ==
[2023-05-22 10:36] VITALS: BP 127/82; RESP 18; TEMP 98.4
--- NOTE | 2023-05-22 11:00 | ED ---
ENT HPI - General Chief complaint: ENT Stated complaint: Congestion, Ear problems Time Seen by Provider: 05/22/23 10:37 Source: patient, RN notes reviewed Mode of arrival: ambulatory Limitations: no limitations - History of Present Illness Initial comments: This is a 42 year old female who presents to the emergency department for congestion and difficulty hearing. States that she has chronic sinus problems, however they've been worse over the last couple of weeks. Additionally, her right ear is painful but feels plugged, and she is having difficulty hearing out of it. She did at one point also develop bumps or lesions to the roof of her mouth. She saw her primary care provider, who thought that she may have shingles in her mouth. She ended up doing 2 rounds of Valtrex without significant relief in symptoms. She was then put on Sudafed and intranasal triamcinolone spray for the sinus problems and ear difficulties, however symptoms have not improved. She is unable to see her ENT until June and is concerned about the progression of her symptoms. She received a shot of antibiotics, but has not been on any oral antibiotics or oral steroids. She is requesting sinus imaging. - Related Data Home Medications Medication Instructions Recorded Confirmed Atorvastatin [Lipitor] 10 mg PO HS 07/12/18 07/12/18 Previous Rx's Medication Instructions Recorded Amoxic-Pot Clav 875-125Mg 1 tab PO BID 7 Days #14 tab 05/22/23 [Augmentin 875-125] predniSONE 50 mg PO DAILY 5 Days #5 tab 05/22/23 Allergies Allergy/AdvReac Type Severity Reaction Status Date / Time sulfamethoxazole AdvReac "inflammed Verified 05/22/23 10:33 [From Bactrim] bowels" trimethoprim [From Bactrim] AdvReac "inflammed Verified 05/22/23 10:33 bowels" Review of Systems ROS Statement: Those systems with pertinent positive or pertinent negative responses have been documented in the HPI. ROS Other: All systems not noted in ROS Statement are negative. Past Medical History Past Medical History: Hyperlipidemia Additional Past Medical History / Comment(s): hx migraines, current cold s/s, recent "bowel infection", hx hypoglycemia, diverticulitis History of Any Multi-Drug Resistant Organisms: None Reported Past Surgical History: Section Past Anesthesia/Blood Transfusion Reactions: No Reported Reaction Past Psychological History: Anxiety Smoking Status: Current every day smoker Past Alcohol Use History: Occasional Past Drug Use History: None Reported - Past Family History Mother Family Medical History: No Reported History General Exam Limitations: no limitations General appearance: alert, in no apparent distress Head exam: Present: atraumatic, normocephalic, normal inspection ENT exam: Present: normal oropharynx, other (Fluid behind the right TM. No erythema to the EM or canal. Minor fluid behind the left TM.) Respiratory exam: Present: normal lung sounds bilaterally. Absent: respiratory distress, wheezes, rales, rhonchi, stridor Cardiovascular Exam: Present: regular rate, normal rhythm, normal heart sounds. Absent: systolic murmur, diastolic murmur, rubs, gallop, clicks Neurological exam: Present: alert, oriented X3, CN II-XII intact Psychiatric exam: Present: normal affect, normal mood Skin exam: Present: warm, dry, intact, normal color. Absent: rash Course Vital Signs 05/22/23 05/22/23 05/22/23 10:31 11:23 12:29 Temperature 98.4 F Pulse Rate 108 H 98 Respiratory 18 18 18 Rate Blood Pressure 127/82 O2 Sat by Pulse 98 98 Oximetry Medical Decision Making - Medical Decision Making This is a 42 year old female who presents to the emergency department for nasal congestion, right ear pain, and difficulty hearing. Was pt. sent in by a medical professional or institution? @ -No Did you speak to anyone other than the patient for history? @ -No Did you review nursing and triage notes? @ -Yes, and I agree, it is accurate with regards to the patient's symptoms. Were old charts reviewed? @ -No Differential Diagnosis? @ -Differential Nasal Congestion: Sinusitis, allergic rhinitis, viral infection, tumor, this is not meant to be an all-inclusive list. EKG interpreted by me (3pts min.)? @ -Not obtained X-rays interpreted by me (1pt min.)? @ -Not obtained CT interpreted by me (1pt min.)? @ -CT scan of the sinuses obtained. My interpretation identifies opacification of the sinuses on the right side. U/S interpreted by me (1pt. min.)? @ -Not obtained What testing was considered but not performed? (CT, X-rays, U/S, labs)? Why? @ -None What meds were considered but not given? Why? @ -None Did you discuss the management of the patient with other professionals? @ -No Did you reconcile home meds? @ -No Was smoking cessation discussed for >3mins.? @ -I discussed smoking cessation for greater than 3 minutes. The risk of smoking were discussed with the patient including but not limited to risks of cancer, stroke, coronary artery disease and COPD. Also discussed with patient were multiple methods of quitting smoking. Lastly we discussed the financial cost of smoking. Was critical care preformed (if so, how long)? @ -No Were there social determinants of health that impacted care today? How? (Homelessness, low income, unemployed, alcoholism, drug addiction, transportation, low edu. Level, literacy, decrease access to med. care, prison, rehab)? @ -No Was there de-escalation of care discussed even if they declined? (Discuss DNR or withdrawal of care, Hospice)? @ -No What co-morbidities impacted this encounter? (DM, HTN, Smoking, COPD, CAD, Cancer, CVA, Hep., AIDS, mental health diagnosis, sleep apnea, morbid obesity)? @ -Smoking, chronic sinus problems Was patient admitted / discharged? @ -Discharged. Covid, influenza, and RSV testing were negative. Patient requested imaging of the sinuses. Computed tomography scan of the sinuses obtained demonstrating moderate right maxillary sinus paranasal sinus disease and opacified right ostiomeatal unit and right frontonasal recess. Findings reviewed with the patient. We'll start her on antibiotics and oral steroids. Prescription for Augmentin and prednisone provided with dosing instructions reviewed. She declined IM steroids in the emergency department. She'll otherwise follow up with ENT as scheduled. Undiagnosed new problem with uncertain prognosis? @ -None Drug Therapy requiring intensive monitoring for toxicity (Heparin, Nitro, Insulin, Cardizem)? @ -None Were any procedures done? @ -None Diagnosis/symptom? @ -Sinusitis Acute, or Chronic, or Acute on Chronic? @ -Acute Uncomplicated (without systemic symptoms) or Complicated (systemic symptoms)? @ -Uncomplicated Side effects of treatment? @ -None Exacerbation, Progression, or Severe Exacerbation] @ -Not applicable Poses a threat to life or bodily function? @ -No Return precautions reviewed in depth, the patient is instructed to return to the emergency department with any new, worsening, or concerning symptoms. Patient verbalized understanding. This case was discussed in detail with the attending ED physician, Dr. Lanza. Presentation, findings, and treatment plan discussed in detail as well. - Lab Data Lab Results 05/22/23 Range/Units 11:01 Influenza Type A (PCR) Not Detected (Not Detectd) Influenza Type B (PCR) Not Detected (Not Detectd) RSV (PCR) Not Detected (Not Detectd) SARS-CoV-2 (PCR) Not Detected (Not Detectd) - Radiology Data Radiology results: report reviewed, image reviewed Disposition Clinical Impression: Sinusitis Disposition: HOME SELF-CARE Instructions (If sedation given, give patient instructions): Sinusitis (ED) Additional Instructions: Return to the emergency department with any new, worsening, or concerning symptoms. Take the antibiotic as prescribed for 7 days. If you choose to take the prednisone, you can take it daily for 5 days. Follow up with your primary care provider in 1-2 days. Prescriptions: Amoxic-Pot Clav 875-125Mg [Augmentin 875-125] 1 tab PO BID 7 Days #14 tab predniSONE 50 mg PO DAILY 5 Days #5 tab Is patient prescribed a controlled substance at d/c from ED?: No Referrals: Franco Sanchez DO [Primary Care Provider] - 1-2 days Time of Disposition: 12:24
--- NOTE | 2023-05-22 11:37 | CT ---
EXAMINATION TYPE: CT sinus wo con CT DLP: 382.4 mGycm, Automated exposure control for dose reduction was used. DATE OF EXAM: 05/22/2023 11:17 AM COMPARISON: None. CLINICAL INDICATION:Female, 42 years old with history of Congestion, pain, difficulty breathing; , Co ngestion, pain and difficulty breathing TECHNIQUE: Multiple thin axial images were obtained through the paranasal sinuses without the use of IV contrast. Additional coronal and sagittal reformatted images were submitted for evaluation. Contrast used: none Oral contrast used: none FINDINGS: Frontal sinuses: Normally developed and aerated. Frontal Recess: Right is opacified left is clear. Maxillary Sinuses: Normally moderate mucosal thickening throughout the right maxillary sinus Maxillary Infundibula([facility]): Opacified right patent left. Ethmoid sinuses: Normally developed few opacified right ethmoid air cells.. Ethmoidal notch: Unprotec briana bilateral anterior ethmoidal arteries. Sphenoid sinuses: Normally developed and aerated. There is sellar sphenoid sinus pneumatization witho ut evidence of dehiscence. No dehiscence of carotid canal. No evidence of optic nerve dehiscence wit hin the sphenoid sinus. Onodi cells identified with no dehiscence of the optic nerves. Sphenoethmoida l recesses: Clear bilaterally. Nasal septum: Within normal limits.. Nasal Turbinates: Within normal limits. Mastoid air cells & middle ears: The air cells are clear. The middle ears are grossly unremarkable. Modified Soft tissues & Brain: Partially seen without gross abnormality. Globes are intact. Other: Cribriform plate demonstrates symmetric cribriform plate. No evidence of bony dehiscence of skull ba se. Lamina papyracea is intact without evidence of remote orbital fracture or orbital prolapse into the e thmoid sinus. IMPRESSION: 1. Moderate right maxillary sinus paranasal sinus disease. There is opacified right ostiomeatal unit, and right frontonasal recess . 2. The left ostiomeatal unit, frontonasal and sphenoethmoidal recesses are clear.
[2023-05-22] MEDS ORDERED: DEXAMETHASONE SOD PHOSPHATE 10 MG/ML 1 ML VIAL IM STA (12:21)
[2023-05-22 12:35] VITALS: PULSE 98
== END 2023-05-22 12:30 | disposition home or self-care (01) ==
LOC: EC 10:11
DX: J32.0 Chronic maxillary sinusitis (principal); E78.5 Hyperlipidemia, unspecified; F17.200 Nicotine dependence, unspecified, uncomplicated; Z86.59 Personal history of other mental and behavioral disorders; Z79.899 Other long term (current) drug therapy; Z88.2 Allergy status to sulfonamides; Z88.1 Allergy status to other antibiotic agents; Z20.822 Contact with and (suspected) exposure to COVID-19
CPT/HCPCS: 70486; 87636; 99284

== ENCOUNTER 2023-06-01 08:26 | Emergency (ER) | payer BC ==
[2023-06-01 08:46] VITALS: TEMP 98.5
--- NOTE | 2023-06-01 09:21 | ED ---
Abdominal Pain HPI - General Chief Complaint: Abdominal Pain Stated Complaint: abd pain Time Seen by Provider: 06/01/23 08:58 Source: patient, RN notes reviewed Mode of arrival: ambulatory Limitations: no limitations - History of Present Illness Initial Comments: This is a 42 year old female who presents to the emergency department for abdominal pain. This started about 3 days ago, when she finished Augmentin for a sinus infection, which is now better. Pain is in the center of the abdomen, but somewhat worse on the right side. Reports a history of diverticulosis and diverticulitis and states that this feels similar. States that her diverticulosi s is right sided. She has associated nausea but no vomiting. Denies any radiation of pain. Denies any diarrhea/constipation or urinary symptoms. Pain is constant and not worse any particular time of the day or with certain foods. MD Complaint: abdominal pain - Related Data Home Medications Medication Instructions Recorded Confirmed Atorvastatin [Lipitor] 10 mg PO HS 07/12/18 07/12/18 Previous Rx's Medication Instructions Recorded Amoxic-Pot Clav 875-125Mg 1 tab PO BID 7 Days #14 tab 05/22/23 [Augmentin 875-125] predniSONE 50 mg PO DAILY 5 Days #5 tab 05/22/23 Ciprofloxacin HCl [Cipro] 500 mg PO Q12HR 5 Days #10 tab 06/01/23 Ketorolac [Toradol] 10 mg PO Q6HR PRN #15 tab 06/01/23 Ondansetron Odt [Zofran Odt] 4 mg PO Q8HR PRN #15 tab 06/01/23 metroNIDAZOLE [Flagyl] 500 mg PO Q8H 5 Days #15 tab 06/01/23 Allergies Allergy/AdvReac Type Severity Reaction Status Date / Time sulfamethoxazole AdvReac "inflammed Verified 06/01/23 08:29 [From Bactrim] bowels" trimethoprim [From Bactrim] AdvReac "inflammed Verified 06/01/23 08:29 bowels" Review of Systems ROS Statement: Those systems with pertinent positive or pertinent negative responses have been documented in the HPI. ROS Other: All systems not noted in ROS Statement are negative. Past Medical History Past Medical History: Hyperlipidemia Additional Past Medical History / Comment(s): hx migraines, current cold s/s, recent "bowel infection", hx hypoglycemia, diverticulitis History of Any Multi-Drug Resistant Organisms: None Reported Past Surgical History: Section Past Anesthesia/Blood Transfusion Reactions: No Reported Reaction Past Psychological History: Anxiety Smoking Status: Current every day smoker Past Alcohol Use History: Occasional Past Drug Use History: None Reported - Past Family History Mother Family Medical History: No Reported History General Exam Limitations: no limitations General appearance: alert, in no apparent distress Head exam: Present: atraumatic, normocephalic, normal inspection Respiratory exam: Present: normal lung sounds bilaterally. Absent: respiratory distress, wheezes, rales, rhonchi, stridor Cardiovascular Exam: Present: regular rate, normal rhythm, normal heart sounds. Absent: systolic murmur, diastolic murmur, rubs, gallop, clicks GI/Abdominal exam: Present: soft, tenderness (Mid and left side of the abdomen), normal bowel sounds. Absent: distended, guarding, rebound, rigid Neurological exam: Present: alert, oriented X3, CN II-XII intact Psychiatric exam: Present: normal affect, normal mood Skin exam: Present: warm, dry, intact, normal color. Absent: rash Course Vital Signs 06/01/23 06/01/23 08:27 11:23 Temperature 98.5 F Pulse Rate 90 82 Respiratory 16 18 Rate Blood Pressure 130/84 105/71 O2 Sat by Pulse 99 95 Oximetry Medical Decision Making - Medical Decision Making This is a 42-year-old female who presents to the emergency department for abdominal pain. Was pt. sent in by a medical professional or institution? @ -No Did you speak to anyone other than the patient for history? @ -No Did you review nursing and triage notes? @ -Yes, and I agree, it is accurate with regards to the patient's symptoms. Were old charts reviewed? @ -No Differential Diagnosis? @ -Differential Abdominal Pain Women: Appendicitis, Cholecystitis, diverticulosis, ischemic bowel, pancreatitis, hepa titis, UTI, gastroenteritis, AAA, incarcerated hernia, bowel obstruction, constipation, inflammatory bowel, hepatitis, peptic ulcer disease, splenic infarction, perforated viscus, vulvitis, ovarian torsion, PID, kidney stone, placenta abruption, this is not meant to be an all-inclusive list EKG interpreted by me (3pts min.)? @ -EKG interpreted by me demonstrating the following: Sinus rhythm. Ventricular rate 77 beats per minute, MI interval 114 ms, QRS duration 88 ms, QTC 411 ms. X-rays interpreted by me (1pt min.)? @ -Not obtained CT interpreted by me (1pt min.)? @ -CT scan of the abdomen and pelvis obtained. My interpretation identifies inflammation of the diverticulum. U/S interpreted by me (1pt. min.)? @ -Not obtained What testing was considered but not performed? (CT, X-rays, U/S, labs)? Why? @ -None What meds were considered but not given? Why? @ -None Did you discuss the management of the patient with other professionals? @ -No Did you reconcile home meds? @ -No Was smoking cessation discussed for >3mins.? @ -I discussed smoking cessation for greater than 3 minutes. The risk of smoking were discussed with the patient including but not limited to risks of cancer, stroke, coronary artery disease and COPD. Also discussed with patient were multiple methods of quitting smoking. Lastly we discussed the financial cost of smoking. Was critical care preformed (if so, how long)? @ -No Were there social determinants of health that impacted care today? How? (Homelessness, low income, unemployed, alcoholism, drug addiction, transportation, low edu. Level, literacy, decrease access to med. care, fpc, rehab)? @ -No Was there de-escalation of care discussed even if they declined? (Discuss DNR or withdrawal of care, Hospice)? @ -No What co-morbidities impacted this encounter? (DM, HTN, Smoking, COPD, CAD, Cancer, CVA, Hep., AIDS, mental health diagnosis, sleep apnea, morbid obesity)? @ -Diverticulosis, smoking Was patient admitted / discharged? @ -Discharged. Lab work found to be unremarkable. Computed tomography scan of the abdomen and pelvis reveals mild diverticulitis along the ascending colon. Symptoms controlled with IV fluids, Toradol, famotidine, and Zofran. Patient just finished a course of Augmentin and requests to avoid that again. Rx for Cipro and Flagyl provided with dosing instructions reviewed along with Toradol and Zofran for symptomatic management. Patient discharged home in stable condition. Undiagnosed new problem with uncertain prognosis? @ -None Drug Therapy requiring intensive monitoring for toxicity (Heparin, Nitro, Insulin, Cardizem)? @ -None Were any procedures done? @ -None Diagnosis/symptom? @ -Diverticulitis Acute, or Chronic, or Acute on Chronic? @ -Acute Uncomplicated (without systemic symptoms) or Complicated (systemic symptoms)? @ -Uncomplicated Side effects of treatment? @ -None Exacerbation, Progression, or Severe Exacerbation] @ -Not applicable Poses a threat to life or bodily function? @ -No Return precautions reviewed in depth, the patient is instructed to return to the emergency department with any new, worsening, or concerning symptoms. Patient verbalized understanding. This case was discussed in detail with the attending ED physician, Dr. Barone. Presentation, findings, and treatment plan discussed in detail as well. - Lab Data Result diagrams: 06/01/23 09:50 06/01/23 09:50 Lab Results 06/01/23 06/01/23 06/01/23 Range/Units 09:16 09:50 09:50 WBC 10.4 (3.8-10.6) k/uL RBC 4.75 (3.80-5.40) m/uL Hgb 13.3 (11.4-16.0) gm/dL Hct 40.4 (34.0-46.0) % MCV 85.1 (80.0-100.0) fL MCH 27.9 (25.0-35.0) pg MCHC 32.9 (31.0-37.0) g/dL RDW 13.5 (11.5-15.5) % Plt Count 262 (150-450) k/uL MPV 7.7 Neutrophils % 75 % Lymphocytes % 19 % Monocytes % 5 % Eosinophils % 1 % Basophils % 0 % Neutrophils # 7.7 (1.3-7.7) k/uL Lymphocytes # 1.9 (1.0-4.8) k/uL Monocytes # 0.5 (0-1.0) k/uL Eosinophils # 0.1 (0-0.7) k/uL Basophils # 0.0 (0-0.2) k/uL Sodium 136 L (137-145) mmol/L Potassium 4.0 (3.5-5.1) mmol/L Chloride 102 (98-107) mmol/L Carbon Dioxide 25 (22-30) mmol/L Anion Gap 9 mmol/L BUN 7 (7-17) mg/dL Creatinine 0.55 (0.52-1.04) mg/dL Est GFR (CKD-EPI)AfAm >90 (>60 ml/min/1.73 sqM) Est GFR (CKD-EPI)NonAf >90 (>60 ml/min/1.73 sqM) Glucose 96 (74-99) mg/dL Plasma Lactic Acid Alexis (0.7-2.0) mmol/L Calcium 9.2 (8.4-10.2) mg/dL Total Bilirubin 0.4 (0.2-1.3) mg/dL AST 23 (14-36) U/L ALT 12 (4-34) U/L Alkaline Phosphatase 67 (38-126) U/L Total Protein 6.8 (6.3-8.2) g/dL Albumin 4.0 (3.5-5.0) g/dL Amylase 43 (30-110) U/L Lipase 31 (23-300) U/L HCG, Qual Not Detected Urine Color Colorless Urine Appearance Clear (Clear) Urine pH 6.5 (5.0-8.0) Ur Specific [place] 1.005 (1.001-1.035) Urine Protein Negative (Negative) Urine Glucose (UA) Negative (Negative) Urine Ketones Negative (Negative) Urine Blood Trace H (Negative) Urine Nitrite Negative (Negative) Urine Bilirubin Negative (Negative) Urine Urobilinogen <2.0 (<2.0) mg/dL Ur Leukocyte Esterase Negative (Negative) Urine RBC <1 (0-5) /hpf Urine Bacteria Rare H (None) /hpf 06/01/23 Range/Units 09:50 WBC (3.8-10.6) k/uL RBC (3.80-5.40) m/uL Hgb (11.4-16.0) gm/dL Hct (34.0-46.0) % MCV (80.0-100.0) fL MCH (25.0-35.0) pg MCHC (31.0-37.0) g/dL RDW (11.5-15.5) % Plt Count (150-450) k/uL MPV Neutrophils % % Lymphocytes % % Monocytes % % Eosinophils % % Basophils % % Neutrophils # (1.3-7.7) k/uL Lymphocytes # (1.0-4.8) k/uL Monocytes # (0-1.0) k/uL Eosinophils # (0-0.7) k/uL Basophils # (0-0.2) k/uL Sodium (137-145) mmol/L Potassium (3.5-5.1) mmol/L Chloride (98-107) mmol/L Carbon Dioxide (22-30) mmol/L Anion Gap mmol/L BUN (7-17) mg/dL Creatinine (0.52-1.04) mg/dL Est GFR (CKD-EPI)AfAm (>60 ml/min/1.73 sqM) Est GFR (CKD-EPI)NonAf (>60 ml/min/1.73 sqM) Glucose (74-99) mg/dL Plasma Lactic Acid Alexis 1.1 (0.7-2.0) mmol/L Calcium (8.4-10.2) mg/dL Total Bilirubin (0.2-1.3) mg/dL AST (14-36) U/L ALT (4-34) U/L Alkaline Phosphatase (38-126) U/L Total Protein (6.3-8.2) g/dL Albumin (3.5-5.0) g/dL Amylase (30-110) U/L Lipase (23-300) U/L HCG, Qual Urine Color Urine Appearance (Clear) Urine pH (5.0-8.0) Ur Specific [place] (1.001-1.035) Urine Protein (Negative) Urine Glucose (UA) (Negative) Urine Ketones (Negative) Urine Blood (Negative) Urine Nitrite (Negative) Urine Bilirubin (Negative) Urine Urobilinogen (<2.0) mg/dL Ur Leukocyte Esterase (Negative) Urine RBC (0-5) /hpf Urine Bacteria (None) /hpf - Radiology Data Radiology results: report reviewed, image reviewed Disposition Clinical Impression: Diverticulitis, Nicotine dependence Disposition: HOME SELF-CARE Instructions (If sedation given, give patient instructions): Diverticulitis (ED), Diverticulitis Diet (ED) Additional Instructions: Return to the emergency department with any new, worsening, or concerning symptoms. Take both antibiotics as prescribed for 5 days. Take the Toradol with Tylenol as needed for pain relief. If you choose to take the Toradol, do not take any other anti-inflammatories such as ibuprofen, take one or the other. Take the Zofran up to every 8 hours as needed for nausea and vomiting. Slowly advance your diet as tolerated and remain well-hydrated. Follow up with your primary care provider in 1-2 days. Prescriptions: Ciprofloxacin HCl [Cipro] 500 mg PO Q12HR 5 Days #10 tab metroNIDAZOLE [Flagyl] 500 mg PO Q8H 5 Days #15 tab Ketorolac [Toradol] 10 mg PO Q6HR PRN #15 tab PRN Reason: Pain Ondansetron Odt [Zofran Odt] 4 mg PO Q8HR PRN #15 tab PRN Reason: Nausea And Vomiting Is patient prescribed a controlled substance at d/c from ED?: No Referrals: Franco Sanchez DO [Primary Care Provider] - 1-2 days Time of Disposition: 11:01
[2023-06-01] MEDS: KETOROLAC 15 MG/ML 1 ML VIAL IVP STA (09:36)
[2023-06-01] MEDS: FAMOTIDINE 20 MG/2 ML VIAL IV STA (09:36)
[2023-06-01] MEDS: SODIUM CHLORIDE 0.9% 1,000 ML IV STA (09:36)
[2023-06-01] MEDS: ONDANSETRON 4 MG/2 ML VIAL IVP STA (09:36)
[2023-06-01 10:08] LABS: Basophils % (A) 0 %; Eosinophils # (A) 0.1 k/uL (0-0.7); Eosinophils % (A) 1 %; HCT 40.4 % (34.0-46.0); HGB 13.3 gm/dL (11.4-16.0); Lymphocytes # (A) 1.9 k/uL (1.0-4.8); Lymphocytes % (A) 19 %; MCH 27.9 pg (25.0-35.0); MCHC 32.9 g/dL (31.0-37.0); MCV 85.1 fL (80.0-100.0); Mean Platelet Volume 7.7; Monocytes # (A) 0.5 k/uL (0-1.0); Monocytes % (A) 5 %; Neutrophils # (A) 7.7 k/uL (1.3-7.7); Neutrophils % (A) 75 %; Platelet Count 262 k/uL (150-450); RBC 4.75 m/uL (3.80-5.40); RDW 13.5 % (11.5-15.5); WBC 10.4 k/uL (3.8-10.6)
[2023-06-01 10:17] LABS: HCG,Qualitative Serum Not Detected
[2023-06-01 10:20] LABS: ALT 12 U/L (4-34); AST 23 U/L (14-36); African American GFR (CKD) >90 (>60 ml/min/1.73 sqM); Alkaline Phosphatase 67 U/L (38-126); Amylase 43 U/L (30-110); Anion Gap 9 mmol/L; Blood Urea Nitrogen 7 mg/dL (7-17); Calcium 9.2 mg/dL (8.4-10.2); Carbon Dioxide 25 mmol/L (22-30); Chloride 102 mmol/L (98-107); Glucose 96 mg/dL (74-99); Lipase 31 U/L (23-300); Non-African American GFR(CKD) >90 (>60 ml/min/1.73 sqM); Sodium 136 mmol/L (137-145); Total Bilirubin 0.4 mg/dL (0.2-1.3); Total Protein 6.8 g/dL (6.3-8.2)
--- NOTE | 2023-06-01 10:41 | CT ---
EXAMINATION: CT ABDOMEN AND PELVIS WITH IV CONTRAST DATE OF EXAMINATION: 06/01/2023. COMPARISON: None available. INDICATION: Left mid and lower abdominal pain. PROCEDURE: Axial CT of the abdomen and pelvis was performed with contrast and sagittal and coronal reformatted images were performed. CT dose lowering techniques were used, to include: automated expos ure control, adjustment for patient size, and/or use of iterative reconstruction. 100 mL of Isovue-37 0 was given intravenously. FINDINGS: LOWER CHEST : The visualized lung bases are clear. There are no pleural or pericardial effusions. ABDOMEN: Liver and Biliary system: Subcentimeter hypodensities are seen within the liver that are too small t o fully characterize. The liver otherwise appears unremarkable. Adrenal glands: Normal. Kidneys and ureters: Normal. Spleen: Normal. Pancreas: Normal. Gallbladder: Normal. Lymph nodes, Peritoneum and mesentery: There is no mesenteric or retroperitoneal lymphadenopathy. Gastrointestinal tract: There are no dilated loops of bowel or free intraperitoneal air. The appe ndix is normal. There is some scattered colonic diverticulosis with an inflamed diverticulum within t he ascending colon which is compatible with a mild diverticulitis. Aorta/IVC: No aortic aneurysm. IVC normal. Abdominal wall: Normal. PELVIS: Fluid: Small amount of free fluid within the pelvis. Lymph Nodes: There is no pelvic or inguinal lymphadenopathy.. Urinary bladder: Normal. BONES: There are no osseous destructive lesions.. ADDITIONAL SIGNIFICANT FINDINGS: None. IMPRESSION: 1. Mild diverticulitis involving the ascending colon. 2. No bowel obstruction or appendicitis.
[2023-06-01] MEDS: ONDANSETRON 4 MG ODT STARTER PACK 2 TAB BTL PO STA (11:22)
[2023-06-01] MEDS: ACET/COD 300 MG/30 MG STARTER PACK 6 TAB BTL PO STA (11:22)
[2023-06-01 11:29] VITALS: BP 105/71; PULSE 82; RESP 18
[2023-06-01 11:46] LABS: Appearance,Urine Clear (Clear); Bacteria,Urine Rare /hpf; Bilirubin,Urine Negative (Negative); Blood,Urine Trace (Negative); Color,Urine Colorless; Glucose,Urine (UA) Negative (Negative); Ketones,Urine Negative (Negative); Leukocyte Esterase,Urine Negative (Negative); Nitrite,Urine Negative (Negative); PH, Urine 6.5 (5.0-8.0); Protein,Urine Negative (Negative); RBC,Urine <1 /hpf (0-5); Specific Gravity,Urine 1.005 (1.001-1.035); Urobilinogen,Urine <2.0 mg/dL (<2.0)
== END 2023-06-01 11:26 | disposition home or self-care (01) ==
LOC: EC 08:26
DX: K57.32 Diverticulitis of large intestine without perforation or abscess without bleeding (principal); E78.5 Hyperlipidemia, unspecified; F17.200 Nicotine dependence, unspecified, uncomplicated; Z86.59 Personal history of other mental and behavioral disorders; Z79.899 Other long term (current) drug therapy; Z88.2 Allergy status to sulfonamides; Z88.1 Allergy status to other antibiotic agents
CPT/HCPCS: 36415; 80053; 82150; 83605; 83690; 85025; 81001; 84703; 74177; 99284; 96374; 96375 ×2; 96361; 99406; J2405; J3490; J1885; S0119; Q9967

== ENCOUNTER → 2023-07-26 | Outpatient (CLI) | payer BC ==
--- NOTE | 2023-07-27 14:07 | MM ---
Reason for Exam: Screening (asymptomatic). Last mammogram was performed 5 year(s) and 0 month(s) ago. Patient History: Menarche at age 10. First Full-Term at age 23. Patient has history of breast feeding. Hormonal Contraceptives for 6 months from age 17 until age 17. Maternal aunt had breast cancer, age 70. Last menstrual period: 07/17/2023 Risk Values: Suzette 5 year model risk: 0.9%. NCI Lifetime model risk: 10.7%. Prior Study Comparison: 07/22/2018 Bilateral Screening Mammogram, [facility]. 04/02/2019 Left Diagnostic Mammogram, [facility]. Tissue Density: The breasts are heterogeneously dense, which may obscure small masses. Findings: Analyzed By CAD. There is no suspicious group of microcalcifications or new suspicious mass in either breast. Overall Assessment: Negative, BI-RAD 1 Management: Screening Mammogram of both breasts in 1 year. . Patient should continue monthly self-breast exams. A clinical breast exam by your physician is recommended on an annual basis. This exam should not preclude additional follow-up of suspicious palpable abnormalities. Note on Suzette scores and lifetime risk: 1. A Suzette score greater than 3% is considered moderate risk. If this is the case, consider specialist referral to assess eligibility for a risk reducing agent. 2. If overall lifetime risk for the development of breast cancer is 20% or higher, the patient may qualify for future screening with alternating mammogram and breast MRI. Electronically signed and approved by: Kevin Aguilar M.D. [facility]
== END | disposition home or self-care (01) ==
LOC: RADMAMWWP 07:25
PROVIDERS: ATTEND Family Medicine
DX: Z12.31 Encounter for screening mammogram for malignant neoplasm of breast (principal); Z78.0 Asymptomatic menopausal state
CPT/HCPCS: 77067